=== PATIENT | male | born 1980 | race African-American/Black ===

== ENCOUNTER 2016-12-13 11:58 | Emergency (ER) | payer MEDICAID ==
[~2016-12-13] VITALS: Ht 177.8 cm; Wt 68.5 kg
[2016-12-13 12:00] VITALS: BP 108/67
== END 2016-12-13 13:06 | disposition home or self-care (01) ==
LOC: ED 12:50
DX: S43.422A Sprain of left rotator cuff capsule, initial encounter (principal); X50.0XXA Overexertion from strenuous movement or load, initial encounter; Y93.89 Activity, other specified; Y92.89 Other specified places as the place of occurrence of the external cause; Y99.8 Other external cause status
CPT/HCPCS: 99284

== ENCOUNTER 2019-06-05 04:06 | Emergency (ER) | payer MEDICAID ==
[~2019-06-05] VITALS: Ht 177.8 cm; Wt 71.3 kg
[2019-06-05 04:07] VITALS: BP 106/67
--- NOTE | 2019-06-05 04:22 | NUR ---
Patient presents to ER c/o lacerations to right forearm. Patient states he put his hand through a window. Patient denies SA. Patient is in NAD. Respirations even and unlabored.
[2019-06-05] MEDS ORDERED: LIDOCAINE 1%-EPI 1:100K, 20ML ONE (04:28)
[2019-06-05] MEDS ORDERED: LIDOCAINE 2%, 20ML SQ ONE (04:30)
[2019-06-05] MEDS ORDERED: NEOSPORIN OINT. PKT 1 PACKET ONE (04:50)
== END 2019-06-05 05:12 | disposition home or self-care (01) ==
LOC: ED 04:52
DX: S51.811A Laceration without foreign body of right forearm, initial encounter (principal); F17.200 Nicotine dependence, unspecified, uncomplicated; X58.XXXA Exposure to other specified factors, initial encounter; Y93.89 Activity, other specified; Y92.89 Other specified places as the place of occurrence of the external cause; Y99.8 Other external cause status
CPT/HCPCS: 12032; 12034; 12042; 99285

== ENCOUNTER 2019-06-21 16:36 | Emergency (ER) | payer MEDICAID ==
[~2019-06-21] VITALS: Ht 177.8 cm; Wt 63.9 kg
[2019-06-21 16:38] VITALS: BP 118/75
--- NOTE | 2019-06-21 17:30 | NUR ---
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
[2019-06-21] MEDS ORDERED: LIDOCAINE-MPF 1%, 5ML ONE (17:55)
--- NOTE | 2019-06-21 18:49 | NUR ---
REPORT FROM MIKHAIL ESTES. ASSUMING CARE AT THIS TIME.
== END 2019-06-21 19:24 | disposition home or self-care (01) ==
LOC: ED 18:41
DX: S01.511A Laceration without foreign body of lip, initial encounter (principal); F17.200 Nicotine dependence, unspecified, uncomplicated; Y04.8XXA Assault by other bodily force, initial encounter; Y93.89 Activity, other specified; Y92.488 Other paved roadways as the place of occurrence of the external cause; Y99.8 Other external cause status
CPT/HCPCS: 40650; 99284

== ENCOUNTER 2019-06-28 16:54 | Emergency (ER) | payer MEDICAID ==
[~2019-06-28] VITALS: Ht 177.8 cm; Wt 65.3 kg
[2019-06-28 16:55] VITALS: BP 106/65
== END 2019-06-28 18:12 | disposition home or self-care (01) ==
LOC: ED 17:55
DX: S01.511D Laceration without foreign body of lip, subsequent encounter (principal); F17.200 Nicotine dependence, unspecified, uncomplicated; X58.XXXD Exposure to other specified factors, subsequent encounter
CPT/HCPCS: 99281

== ENCOUNTER 2020-01-30 11:34 | Emergency (ER) | payer MEDICAID ==
[~2020-01-30] VITALS: Ht 177.8 cm; Wt 66.2 kg
[2020-01-30] MEDS ORDERED: ONDANSETRON 2MG/ML, 2ML IVPush ONE (12:30)
[2020-01-30] MEDS ORDERED: SODIUM CHLORIDE 0.9% 1,000ML IVBOLUS ONE (12:30)
[2020-01-30] MEDS ORDERED: SODIUM CHLORIDE FLUSH 10ML SYR IVF ONE (12:30)
[2020-01-30 12:43] LABS: BASOPHILS % (AUTO) 0 % (0-1); EOSINOPHILS % (AUTO) 0 % (1-7); LYMPHOCYTES % (AUTO) 8 % (22-44); MD NO; MEAN CORPUSCULAR HEMOGLOBIN 30.8 pg (27.5-34.5); MEAN CORPUSCULAR HGB CONC 34.1 g/dL (33.2-36.2); MEAN PLATELET VOLUME 7.5 fL (7.4-10.4); MONOCYTES % (AUTO) 5 % (2-9); NEUTROPHILS % (AUTO) 88 % (42-75); PLATELET COUNT 334 x10^3/uL (130-400); RED CELL DISTRIBUTION WIDTH 12.6 % (9.4-14.8)
[2020-01-30] MEDS ORDERED: ONDANSETRON 2MG/ML, 2ML ONE (12:46)
[2020-01-30 12:50] LABS: ALBUMIN 4.5 g/dL (3.4-5.0); ANION GAP 7 mmol/L (5-15); CALCIUM 9.3 mg/dL (8.5-10.1); CHLORIDE 106 mmol/L (98-107)
[2020-01-30 12:53] LABS: ALANINE AMINOTRANSFERASE 21 U/L (12-78); ALKALINE PHOSPHATASE 61 U/L (45-117); BILIRUBIN,TOTAL 0.7 mg/dL (0.2-1.0); CREATININE 1.31 mg/dL (0.7-1.3)
--- NOTE | 2020-01-30 13:30 | NUR ---
PT MEDICATED PER MAR, VSS. NO NEEDS AT THIS TIME
[2020-01-30 13:55] LABS: MICROSCOPIC NOT IND
[2020-01-30 14:55] VITALS: BP 125/50
== END 2020-01-30 15:05 | disposition home or self-care (01) ==
LOC: ED 12:12
DX: R11.2 Nausea with vomiting, unspecified (principal); R10.9 Unspecified abdominal pain; F17.200 Nicotine dependence, unspecified, uncomplicated
CPT/HCPCS: 36415; 80053; 81003; 83605; 83690; 85025; 96361; 96374; 99283; J2405; J7030